=== PATIENT | female | born 1950 | race Caucasian/White ===

== ENCOUNTER 2017-07-07 11:06 | Observation (INO) | payer MEDICARE ==
[~2017-07-07] VITALS: Ht 157.5 cm; Wt 126.0 kg
[~2017-07-07 11:06] MED LIST: AMLO10 PO; ASPI81CH PO; ATROVENT INH; AZIT500 PO; BENZ100A PO; BUDE6HFA INH; CHOL10002 PO; DELTASONE20 MG PO; DIPH50 PO; DOXY100 PO; DULERA 200 MCG/13 GM INH; FLUC150A PO; FOLI1 PO; FURO40 PO; HYDACE10B PO; IPRAIS NEB; KETO15TC TOP; LEVSOD100 PO; LEVSOD150 PO; LISI20 PO; Laxative5 M1 PO; METF500 PO; MIRALAX17 GM PO; Morphine Sulfat15 MG PO; Nitrostat0.4 MG SL; OXYC10ER PO; OXYC1TAB11; PIOG45 PO; POTCHL20ER PO; PRED10 PO; ROSU5 PO; SERT100 PO; SPIRIVA RESPIMAT4 GM IH; TRAZ150T57 PO
[2017-07-07 11:26] LABS: BASOPHILS ABSOLUTE AUTO 0.04 K/mm3 (0.00-0.23); BASOPHILS PERCENT AUTO 0 % (0-2); EOSINOPHILS PERCENT AUTO 1 % (0-6); Hemoglobin 17.2 g/dL (11.5-16.0); IMMATURE GRAN ABSOLUTE AUTO 0.13 K/mm3 (0.00-0.10); IMMATURE GRAN PERCENT AUTO 1 % (0-1); LYMPHOCYTES ABSOLUTE AUTO 1.11 K/mm3 (0.84-5.20); LYMPHOCYTES PERCENT AUTO 6 % (21-46); MONOCYTES ABSOLUTE AUTO 1.04 K/mm3 (0.16-1.47); MONOCYTES PERCENT AUTO 5 % (4-13); Mean Corpuscular HGB Conc 30.2 g/dL (31.5-36.5); Mean Corpuscular Volume 93 fL (80-100); Mean Platelet Volume 9.6 fL (9.1-12.4); NEUTROPHILS ABSOLUTE AUTO 17.72 K/mm3 (1.96-9.15); NEUTROPHILS PERCENT AUTO 88 % (41-73); Platelet Count 330 K/mm3 (150-400); RDW Coefficient Variation 13.1 % (11.7-14.2); RDW Standard Deviation 44.1 fL (35.1-46.3); Red Blood Cell Count 6.15 M/mm3 (3.80-5.20); White Blood Cell Count 20.14 K/mm3 (4.00-11.30)
[2017-07-07 11:33] LABS: Hematocrit 56.9 % (33.0-51.0)
[2017-07-07 11:48] LABS: Alanine Aminotransfer (ALT/SGP 13 U/L (12-78); Albumin, Blood 3.3 g/dL (3.4-5.0); Albumin/Globulin Ratio 0.7 (0.8-1.8); Alk Phos 102 U/L (50-136); Anion Gap 4 mmol/L (6-16); Aspartate Aminotrans (AST/SGOT 13 U/L (12-37); Bilirubin, Total 0.4 mg/dL (0.1-1.0); Blood Urea Nitrogen 15 mg/dL (8-24); Bun/Creatinine Ratio 25.1 (12.0-20.0); CO2, Blood 40 mmol/L (21-32); CPK Creatine Kinase 68 U/L (26-193); Calcium, Blood 9.3 mg/dL (8.5-10.1); Chloride, Blood 91 mmol/L (98-108); Creatine Kinase MB 2.2 ng/mL (0.0-3.6); Creatine Kinase MB Index 3.2 (0.0-4.0); Globulin, Blood 4.7 g/dL (2.2-4.0); Glomerular Filtration Rate >60 (60-); Glucose, Blood 163 mg/dL (70-99); Potassium, Blood 4.4 mmol/L (3.5-5.5); Sodium, Blood 135 mmol/L (136-145); Troponin I <0.015 ng/mL (0.000-0.040)
[2017-07-07 12:49] LABS: Source, Urine Catheter
[2017-07-07 13:09] LABS: Appearance, Urine Hazy (Clear); Bilirubin, Urine Neg (Neg); Blood, Urine Neg (Neg); Color, Urine Yellow (P-Yellow); Glucose Qualitative, Urine Neg (Neg); Ketones, Urine Neg (Neg); Leukocyte Esterase, Urine Neg (Neg); Nitrite, Urine Neg (Neg); Protein, Urine 1+ (Neg); Specific Gravity, Urine 1.015 (1.003-1.022); Urobilinogen, Urine NORM (Normal)
[2017-07-07 13:33] LABS: Bacteria Not Seen /hpf; Mucus Light (0-Heavy); Red Blood Cells, Urine Not Seen /hpf (0-2); Squamous Epithelial Cells Many /hpf (Few); White Blood Cells, Urine 0-2 /hpf (0-5)
[2017-07-07 15:47] LABS: Base Excess Venous 18.8 mmol/L; Bicarbonate Venous 37.1 mmol/L (24.0-30.0); PCO2 Venous 82.1 mmHg (38-42); PO2 Venous 45.8 mmHg (38-42); pH Blood Venous 7.34 (7.34-7.37)
[2017-07-08 05:59] LABS: Anion Gap 7 mmol/L (6-16); Blood Urea Nitrogen 18 mg/dL (8-24); CO2, Blood 34 mmol/L (21-32); Calcium, Blood 8.4 mg/dL (8.5-10.1); Chloride, Blood 94 mmol/L (98-108); Creatinine, Blood 0.64 mg/dL (0.40-1.00); Glomerular Filtration Rate >60 (60-); Glucose, Blood 169 mg/dL (70-99); Potassium, Blood 3.9 mmol/L (3.5-5.5); Sodium, Blood 135 mmol/L (136-145)
[2017-07-08 11:25] LABS: Hematocrit 53.7 % (33.0-51.0); Hemoglobin 16.5 g/dL (11.5-16.0); Mean Corpuscular HGB 28.1 pg (26.0-34.0); Mean Corpuscular HGB Conc 30.7 g/dL (31.5-36.5); Mean Corpuscular Volume 92 fL (80-100); Mean Platelet Volume 9.8 fL (9.1-12.4); Platelet Count 284 K/mm3 (150-400); RDW Standard Deviation 43.4 fL (35.1-46.3); Red Blood Cell Count 5.87 M/mm3 (3.80-5.20); White Blood Cell Count 15.15 K/mm3 (4.00-11.30)
[2017-07-08 11:56] LABS: Base Excess Venous 13.3 mmol/L; Bicarbonate Venous 33.9 mmol/L (24.0-30.0); PCO2 Venous 61.6 mmHg (38-42); PO2 Venous 130 mmHg (38-42)
[2017-07-09] MEDS ORDERED: LEVSOD50 PO (12:13)
== END 2017-07-09 21:25 | disposition home health service (06) ==
LOC: ER 11:06 → MEDS 11:07
PROVIDERS: Emergency Medicine; Internal Medicine
DX: R55 Syncope and collapse (principal); J96.22 Acute and chronic respiratory failure with hypercapnia; J96.21 Acute and chronic respiratory failure with hypoxia; J44.9 Chronic obstructive pulmonary disease, unspecified; I10 Essential (primary) hypertension; E11.9 Type 2 diabetes mellitus without complications; E78.5 Hyperlipidemia, unspecified; G89.29 Other chronic pain; M54.9 Dorsalgia, unspecified; F32.9 Major depressive disorder, single episode, unspecified; G47.33 Obstructive sleep apnea (adult) (pediatric); I27.20 Pulmonary hypertension, unspecified; E66.01 Morbid (severe) obesity due to excess calories; E89.0 Postprocedural hypothyroidism; F17.210 Nicotine dependence, cigarettes, uncomplicated; Z82.49 Family history of ischemic heart disease and other diseases of the circulatory system; Z79.82 Long term (current) use of aspirin; Z79.899 Other long term (current) drug therapy; Z79.4 Long term (current) use of insulin; Z68.43 Body mass index [BMI] 50.0-59.9, adult
CPT/HCPCS: 36415; 71045; 80048; 80053; 81001; 82550; 82553; 82803; 82947; 83880; 84484; 85025; 85027; 93005; 93010; 93306; 94010; 94640; 94664; 94667; 94760; 96360; 96361; 96372; 97110; 97162; 97530; 98960; 99285; 99407; G0378; G8978; G8979; J1650; J7030

== ENCOUNTER 2019-12-13 08:35 | Emergency (ER) | payer MEDICARE ==
[~2019-12-13] VITALS: Ht 160 cm; Wt 129.3 kg
[~2019-12-13 08:35] MED LIST changes: +LEVSOD50 PO
[2019-12-13] MEDS ORDERED: LISI20 PO (08:51)
[2019-12-13] MEDS ORDERED: OXYCONTIN10 MG PO (08:51)
[2019-12-13] MEDS ORDERED: PIOG30 PO (08:51)
[2019-12-13] MEDS ORDERED: LEVO-T50 MCG PO (08:52)
[2019-12-13] MEDS ORDERED: VICTOZA 3-0.6 MG/0.2 SC (08:52)
[2019-12-13] MEDS ORDERED: POTCHL20ER PO (08:52)
[2019-12-13] MEDS ORDERED: SERT100 PO (08:52)
[2019-12-13] MEDS ORDERED: METF500 PO (08:52)
[2019-12-13] MEDS ORDERED: FURO40 PO (08:52)
[2019-12-13] MEDS ORDERED: FOLI1 PO (08:53)
[2019-12-13] MEDS ORDERED: FLUT1DIS2 INH (08:53)
[2019-12-13] MEDS ORDERED: ROSU5 PO (08:53)
[2019-12-13] MEDS ORDERED: TIOT18 INH (08:53)
[2019-12-13] MEDS ORDERED: AMLO10 PO (08:53)
[2019-12-13] MEDS ORDERED: TRAZ150T57 PO (08:53)
[2019-12-13] MEDS ORDERED: BENADRYL25 MG PO (08:54)
[2019-12-13] MEDS ORDERED: Vitamin D400 UNI1 PO (08:54)
[2019-12-13] MEDS ORDERED: ASPI81CH PO (08:54)
[2019-12-13] MEDS ORDERED: AERONEB GO NEB1 EACH (08:54)
[2019-12-13] MEDS ORDERED: Ketoconazole15 GM TOP (08:55)
[2019-12-13] MEDS ORDERED: TRIDERM28.4 GM TOP (08:55)
[2019-12-13] MEDS ORDERED: NYSTOP15 GM TOP (08:55)
[2019-12-13] MEDS ORDERED: Hydrocortiso453.6 G1 TOP (08:56)
== END 2019-12-13 11:45 | disposition home or self-care (01) ==
LOC: ER 08:35
DX: M25.552 Pain in left hip (principal); I10 Essential (primary) hypertension; E78.5 Hyperlipidemia, unspecified; E03.9 Hypothyroidism, unspecified; F32.9 Major depressive disorder, single episode, unspecified; J44.9 Chronic obstructive pulmonary disease, unspecified; F17.210 Nicotine dependence, cigarettes, uncomplicated; Z79.899 Other long term (current) drug therapy; Z79.84 Long term (current) use of oral hypoglycemic drugs; Z79.82 Long term (current) use of aspirin
CPT/HCPCS: 73502; 99283-25

== ENCOUNTER 2020-01-19 18:06 | Inpatient (IN) | payer MEDICARE ==
[~2020-01-19] VITALS: Ht 157.5 cm; Wt 130.7 kg
[~2020-01-19 18:06] MED LIST changes: +AERONEB GO NEB1 EACH; +Aspirin EC81 MG PO; +BENADRYL25 MG PO; +FLUT1DIS2 INH; +Hydrocortiso453.6 G1 TOP; +Ketoconazole15 GM TOP; +LEVO-T50 MCG PO; +NYSTOP15 GM TOP; +OXYCONTIN10 MG PO; +PIOG30 PO; +TIOT18 INH; +TRIDERM28.4 GM TOP; +VICTOZA 3-0.6 MG/0.2 SC; +Vitamin D2000 UNIT PO
[2020-01-19 18:31] LABS: pH Blood Arterial 7.25 (7.35-7.45)
[2020-01-19 18:32] LABS: PCO2 Arterial > 105 mmHg (35-45); PO2 Arterial 48.3 mmHg (80-100)
[2020-01-19 18:34] LABS: BASOPHILS ABSOLUTE AUTO 0.08 K/mm3 (0.00-0.23); BASOPHILS PERCENT AUTO 1 % (0-2); EOSINOPHILS PERCENT AUTO 1 % (0-6); Hematocrit 53.4 % (33.0-51.0); Hemoglobin 15.1 g/dL (11.5-16.0); IMMATURE GRAN ABSOLUTE AUTO 0.24 K/mm3 (0.00-0.10); IMMATURE GRAN PERCENT AUTO 2 % (0-1); LYMPHOCYTES ABSOLUTE AUTO 0.89 K/mm3 (0.84-5.20); LYMPHOCYTES PERCENT AUTO 6 % (21-46); MONOCYTES ABSOLUTE AUTO 0.63 K/mm3 (0.16-1.47); MONOCYTES PERCENT AUTO 4 % (4-13); Mean Corpuscular HGB 28.3 pg (26.0-34.0); Mean Corpuscular HGB Conc 28.3 g/dL (31.5-36.5); Mean Corpuscular Volume 100 fL (80-100); Mean Platelet Volume 10.5 fL (9.1-12.4); NEUTROPHILS ABSOLUTE AUTO 13.81 K/mm3 (1.96-9.15); NEUTROPHILS PERCENT AUTO 88 % (41-73); Platelet Count 255 K/mm3 (150-400); RDW Coefficient Variation 13.1 % (11.7-14.2); RDW Standard Deviation 48.6 fL (35.1-46.3); Red Blood Cell Count 5.34 M/mm3 (3.80-5.20); White Blood Cell Count 15.75 K/mm3 (4.00-11.30)
[2020-01-19 19:17] LABS: Alanine Aminotransfer (ALT/SGP 20 U/L (12-78); Albumin/Globulin Ratio 0.7 (0.8-1.8); Alk Phos 108 U/L (50-136); Aspartate Aminotrans (AST/SGOT 9 U/L (12-37); Bilirubin, Total 0.5 mg/dL (0.1-1.0); Blood Urea Nitrogen 24 mg/dL (8-24); Bun/Creatinine Ratio 38.8 (12.0-20.0); CPK Creatine Kinase 41 U/L (26-193); Calcium, Blood 9.6 mg/dL (8.5-10.1); Chloride, Blood 92 mmol/L (98-108); Creatinine, Blood 0.62 mg/dL (0.40-1.00); Globulin, Blood 4.1 g/dL (2.2-4.0); Glomerular Filtration Rate >60 (60-); Glucose, Blood 341 mg/dL (70-99); Potassium, Blood 5.2 mmol/L (3.5-5.5); Sodium, Blood 139 mmol/L (136-145); Total Protein, Blood 7.1 g/dL (6.4-8.2); Troponin I <0.015 ng/mL (0.000-0.040)
[2020-01-19 19:19] LABS: Anion Gap Unable to Calculate mmol/L (6-16); CO2, Blood >45 mmol/L (21-32)
[2020-01-19 20:18] LABS: Adenovirus Not Detected (NOT DETECT); Bordetella pertussis Not Detected (NOT DETECT); Chlamydophila pneumoniae Not Detected (NOT DETECT); Coronavirus 229E Not Detected (NOT DETECT); Coronavirus HKU1 Not Detected (NOT DETECT); Coronavirus NL63 Not Detected (NOT DETECT); Coronavirus OC43 Not Detected (NOT DETECT); Human Metapneumovirus Not Detected (NOT DETECT); Human Rhinovirus/Enterovirus Not Detected (NOT DETECT); Influenza A/2009-H1 Not Detected (NOT DETECT); Influenza A/H1 Not Detected (NOT DETECT); Influenza A/H3 Not Detected (NOT DETECT); Influenza B Not Detected (NOT DETECT); Mycoplasma pneumoniae Not Detected (NOT DETECT); Parainfluenza Virus 1 Not Detected (NOT DETECT); Parainfluenza Virus 2 Not Detected (NOT DETECT); Parainfluenza Virus 3 Not Detected (NOT DETECT); Parainfluenza Virus 4 Not Detected (NOT DETECT); Respiratory Syncytial Virus Not Detected (NOT DETECT); SARS-Cov-2 (COVID-19), BioFire Not Detected (NOT DETECT)
[2020-01-19] MEDS ORDERED: SYNTHROID75 MCG PO (20:22)
[2020-01-19] MEDS ORDERED: OXYC10TA19 PO (20:22)
[2020-01-19] MEDS ORDERED: VICTOZA 2-0.6 MG/0.1 SC (20:22)
[2020-01-20 02:29] LABS: U Amphetamine Screen Not Detected; U Barbituate Screen Not Detected; U Benzodiazapine Screen Not Detected; U Buprenorphine Screen Not Detected; U Cannabinoids Screen Not Detected; U Cocaine Screen Not Detected; U Methadone Screen Not Detected; U Methamphetamine Screen Not Detected; U Opiates Screen Not Detected; U Oxycodone Screen Not Detected; U Phencyclidine Screen Not Detected; U Propoxyphene Screen Not Detected
[2020-01-20 03:18] LABS: PO2 Arterial 54.1 mmHg (80-100); pH Blood Arterial 7.41 (7.35-7.45)
[2020-01-20 03:19] LABS: PCO2 Arterial 75.3 mmHg (35-45)
--- NOTE | 2020-01-20 03:30 | NUR ---
CRITICAL LAB RESPIRATORY REPORTS A CRITICAL LAB: ARTERIAL C02, 75.3. THIS IS DECREASED FROM PREVIOUS ARTERIAL C02 LAB. SPOKE TO CHARGE NURSE, ANGELES, WHO AGREED THIS IS TRENDING IN THE RIGHT DIRECTION. WILL CONTINUE TO MONITOR.
[2020-01-20 06:37] LABS: BASOPHILS ABSOLUTE AUTO 0.04 K/mm3 (0.00-0.23); BASOPHILS PERCENT AUTO 0 % (0-2); EOSINOPHILS PERCENT AUTO 0 % (0-6); Hematocrit 49.6 % (33.0-51.0); Hemoglobin 14.5 g/dL (11.5-16.0); IMMATURE GRAN ABSOLUTE AUTO 0.12 K/mm3 (0.00-0.10); IMMATURE GRAN PERCENT AUTO 1 % (0-1); LYMPHOCYTES ABSOLUTE AUTO 1.02 K/mm3 (0.84-5.20); LYMPHOCYTES PERCENT AUTO 6 % (21-46); MONOCYTES ABSOLUTE AUTO 0.68 K/mm3 (0.16-1.47); MONOCYTES PERCENT AUTO 4 % (4-13); Mean Corpuscular HGB 28.4 pg (26.0-34.0); Mean Corpuscular HGB Conc 29.2 g/dL (31.5-36.5); Mean Corpuscular Volume 97 fL (80-100); Mean Platelet Volume 10.3 fL (9.1-12.4); NEUTROPHILS PERCENT AUTO 89 % (41-73); Platelet Count 248 K/mm3 (150-400); RDW Standard Deviation 46.1 fL (35.1-46.3); White Blood Cell Count 16.46 K/mm3 (4.00-11.30)
--- NOTE | 2020-01-20 06:40 | NUR ---
ADMIT NOTE / SHIFT SUMMARY PT CAME TO PCU FROM ED AT APPROX 0115. PT WAS SLID FROM ED STRETCHER TO PCU BED BY 5 STAFF MEMBERS. PT ALERT. ORIENTED TO SELF. PT COOPERATIVE, CONFUSED. WHEN ASKING PT QUESTIONS ABOUT MEDICAL HISTORY, SHE REPLIED "KITTENS". RESPIRATORY IN ROOM TO ASSIST PT WITH BIPAP. BIPAP SETTINGS: 18/8, FIO2 45%, RR 30'S. PT WEARING BIPAP T/O SHIFT SINCE ADMISSION. PT DID HAVE A CRITICAL LAB: ARTERIAL C02, 75.3. THIS IS DECREASED FROM PREVIOUS ARTERIAL C02 LAB. TELEMETRY READS SR, HR 80'S. DAVIS CATHETER DRAINING YELLOW/ORANGE URINE. UPON ADMISSION, PT HAD DRIED FECES ON HER FEET/BETWEEN TOES. PT HAS LARGE AREAS OF REDNESS UNDER BILAT BREASTS, ABD FOLD, & GROIN SPREADING DOWN INTO THIGHS, SEE PICTURES IN CHART. PT WAS GIVEN COMPLETE BED BATH BY RN AND PCT. NYSTATIN PLACED ON RED AREAS. PT IN BED SLEEPING. WILL CONTINUE TO MONITOR UNTIL END OF SHIFT. .
[2020-01-20 07:04] LABS: Albumin, Blood 2.9 g/dL (3.4-5.0); Blood Urea Nitrogen 22 mg/dL (8-24); Bun/Creatinine Ratio 36.4 (12.0-20.0); Calcium, Blood 9.3 mg/dL (8.5-10.1); Chloride, Blood 92 mmol/L (98-108); Glomerular Filtration Rate >60 (60-); Glucose, Blood 247 mg/dL (70-99); Phosphorus, Blood 1.4 mg/dL (2.5-4.9); Potassium, Blood 4.7 mmol/L (3.5-5.5); Sodium, Blood 139 mmol/L (136-145)
[2020-01-20 07:20] LABS: Anion Gap Unable to Calculate mmol/L (6-16)
[2020-01-20 07:24] LABS: CO2, Blood >45 mmol/L (21-32)
--- NOTE | 2020-01-20 07:41 | NUR ---
0715 The pt was attempting to have a break from the Bipap, but was intolerant of it. Obvious dyspnea, grunting, RR greater than 40, and spo2 85% on the NC hi caio at 10 l/min. She was put back on the bipap, and is now at 0745 talking to me through her bipap, spo2 91%, and RR 35-40, with no noted dyspnea. States that her breathing is "ok" and would like some water. States that she fell at home and now is at the hospital. She is slightly confused,states that she stayed at someone's home last night. States clearly that she is in the hospital now.
--- NOTE | 2020-01-20 08:27 | NUR ---
Pt was given ice water, medications for pain taken with milk while a very brief break for bipap was taken. She is occasionally yelling out, and asking for food, what happened last night, saying that she doesn't want to be here in the hospital, that she wants to go home, and at times demanding that staff members change their assignment because she doesn't like them. Currently on bipap, 45% fio2 with settings 18/8, and RR 33 spo2 93. HR 67. When not yelling out, she appears to have less work of breathing while on the bipap; however, she does have moaning and grunting and swearing on occasion.
--- NOTE | 2020-01-20 12:51 | NUR ---
Yung continues to sleep most of the day, awakening easily, and wearing the bipap. Short breaks for drinks of ice water/taking medications. She has no more c/o pain at this time. Repositioned and attempted to contact her son Yoseph at her request. She also requested that I call her ex Tramaine, however, I have no number for him, and neither does she. She is irritable, often telling staff that she does not like them, and overall frequent expressions consistent with frustration and anger. I asked her whom she lives with and she said that she did not want to tell me because it wasn't any of our business. All attempts were made for her comfort, respiratory support, and personal hygiene.
--- NOTE | 2020-01-20 13:02 | NUR ---
Pt pulled out her IV on her left shoulder, said that it was bothering her. Bleeding stopped with 2x2 gauze and covered site with bandaid. Pt pulled securing coban off of her right wrist IV site, said that it was in the way. IV verified intact, and dressing was reinforced to prevent future dislodgement with tape and coban. At this time, the pt is lying on her left side, wearing bipap, and has no
--- NOTE | 2020-01-20 13:09 | NUR ---
Assisted up to BSC at pt's request. She is wobbly on her feet, but strong enough to stand and turn toward the BSC for BM. She is somewhat confused and had a little difficulty following verbal cues. Wearing bipap the entire time as she appears to have some dyspnea, even with the bipap on during the activity with 2 staff members assisting.
--- NOTE | 2020-01-20 14:22 | NUR ---
Pt appears to be sleeping comfortably on her right side, wearing the bipap. Her grandson Yoseph called on the phone and asked if he could come and visit. I told him she has not had any visitors today, and that he could come.
--- NOTE | 2020-01-20 15:41 | NUR ---
SPO2 greater than 95% on the bipap. Pt was taken off of bipap, and oxymizer put on and o2 delivery gradually weaned down as spo2 was still high. Now on 5 l/min oxymizer and spo2 is 93% at this time.
--- NOTE | 2020-01-20 15:53 | NUR ---
Call to Dr. Wolff to notify that pt is tolerating being off of the bipap on oxymizer. New order for diet and ACHS blood sugars.
--- NOTE | 2020-01-20 17:00 | NUR ---
Tolerating breaks from the bipap. Medicated for pain with Tylenol at this time. Pt is yelling, "where is my dinner? I want to eat!" Assured her that dinner tray should be arriving between 5 and 5;30 PM. She said, "No breakfast, No dinner, this is NOT A NICE PLACE!" Explained to the pt that earlier today she wasn't able to breathe well enough to come off of the bipap, despite efforts on nursing and respiratory care staff to wean her off of the bipap or give her short breaks from the bipap. Explained she could not eat if she wasn't able to breathe without the bipap mask.
--- NOTE | 2020-01-20 17:48 | NUR ---
Pt has been frequently offered oral fluids today on very brief breaks from bipap, and was able to tolerate the oxymizer at 8 l/min for dinner, spo2 did drop to 84-86% at the peak of activity. At this time, she is done eating and was put back on the bipap as she agreed that her work of breathing was hard and I also saw that her spo2 was 87% on 8 l on the oxymizer after she had finished eating. Quezada catheter now draining clear veterinary practice manager yellow urine; this morning it was jojo, clear.
--- NOTE | 2020-01-21 06:10 | NUR ---
END OF SHIFT SUMMARY PT AXO. HAS BEEN COOPERATIVE T/O SHIFT W/OUT ANY OUTBURSTS EMOTIONALLY. HAS BEEN SR, VSS. REMAINS ON BIPAP, /, FIO2 35%, TITRATED FROM 45%. WHEN OF, PT ON OXYMIZER 5-8L ABD TOLERATED FOR 10 MINUTE BREAKS. PT QUINN STOOD AT BEDSIDE A FEW TIMES THIS SHIFT FOR REPOSITIONING. SUSAN SCOTTANS PATENT AND DRAINING. MINIMAL OUTPUT. HAS DENIED CP T/O SHIFT. STATES FEELING "MUCH BETTER" THIS SHIFT VS DAY SHIFT. OTHERWISE, PT RESTING OFF AND ON T/O SHIFT. USING CALL LIGHT APPROPRIATELY. WILL CONTINUE TO MONITOR UNTIUL SHIFT CHANGE.
--- NOTE | 2020-01-21 07:30 | NUR ---
ASSUMED CARE: PT RECEIVING BREATHING TX, OXYMIZER IN PLACE AT 8L. RT AT BEDSIDE. NO ACUTE NEEDS AT THIS TIME.
--- NOTE | 2020-01-21 18:53 | NUR ---
SHIFT SUMMARY: PT RESTING IN BED ON 6L OXYMIZER AT THIS TIME. PT STATES HOME BASELINE IS 4-6L. GRANDSON CAME IN TO SEE HER AND WAS GIVEN UPDATE. PLAN IS FOR CONTINUED TITRATION OF O2 BACK TO BASELINE. PHYSICAL THERAPY EVALUATED AND RECOMMENDS HOME HEALTH. PT HOPES TO GO BACK HOME IN NEXT COUPLE DAY. SUSAN DOUGHERTY'D TODAY WITH VOID AFTERWARD. NO FURTHER NEEDS OR CONCERNS.
[2020-01-22 04:54] LABS: BASOPHILS ABSOLUTE AUTO 0.03 K/mm3 (0.00-0.23); BASOPHILS PERCENT AUTO 0 % (0-2); EOSINOPHILS ABSOLUTE AUTO 0.35 K/mm3 (0.00-0.68); EOSINOPHILS PERCENT AUTO 4 % (0-6); Hematocrit 45.8 % (33.0-51.0); Hemoglobin 13.3 g/dL (11.5-16.0); IMMATURE GRAN ABSOLUTE AUTO 0.05 K/mm3 (0.00-0.10); IMMATURE GRAN PERCENT AUTO 1 % (0-1); LYMPHOCYTES ABSOLUTE AUTO 1.93 K/mm3 (0.84-5.20); LYMPHOCYTES PERCENT AUTO 20 % (21-46); MONOCYTES ABSOLUTE AUTO 0.68 K/mm3 (0.16-1.47); MONOCYTES PERCENT AUTO 7 % (4-13); Mean Corpuscular HGB 27.4 pg (26.0-34.0); Mean Corpuscular Volume 94 fL (80-100); Mean Platelet Volume 10.2 fL (9.1-12.4); NEUTROPHILS ABSOLUTE AUTO 6.72 K/mm3 (1.96-9.15); NEUTROPHILS PERCENT AUTO 69 % (41-73); Platelet Count 218 K/mm3 (150-400); RDW Coefficient Variation 13.6 % (11.7-14.2); RDW Standard Deviation 47.3 fL (35.1-46.3); Red Blood Cell Count 4.85 M/mm3 (3.80-5.20); White Blood Cell Count 9.76 K/mm3 (4.00-11.30)
[2020-01-22 05:12] LABS: Anion Gap 2 mmol/L (6-16); Blood Urea Nitrogen 22 mg/dL (8-24); CO2, Blood 40 mmol/L (21-32); Calcium, Blood 8.6 mg/dL (8.5-10.1); Chloride, Blood 97 mmol/L (98-108); Creatinine, Blood 0.61 mg/dL (0.40-1.00); Glomerular Filtration Rate >60 (60-); Glucose, Blood 242 mg/dL (70-99); Potassium, Blood 4.1 mmol/L (3.5-5.5); Sodium, Blood 139 mmol/L (136-145)
--- NOTE | 2020-01-22 05:49 | NUR ---
PROVIDER CALLED DR TEJADA REGARDING PT'S PAIN. UPDATED THAT PT TAKES OXYCODONE 10MG Q6 AT HOME AND THAT THE LAST PHARMACY REFILL WAS WITHIN A WEEK OF ADMISSION. UPDATED THAT TYLENOL HAS BEEN GIVEN MUCH EMAR HAS ALLOWED AND HAS HAD NO EFFECT ON PT'S CHRONIC PAIN. DR TEJADA STATES TO GIVE ANOTHER DOSE OF 650MG ACETIMINOPHEN.
--- NOTE | 2020-01-22 05:52 | NUR ---
SHIFT SUMMARY PT WAS ON NASAL OXYMIZER T/O SHIFT AT 8LPM WITH O2 SATS IN THE 90'S, PT SHOWED MILD DYSPNEA UPON EXERTION AND WAS TACHYPNEIC WITH 02 SATS STABLE. PT RESPRITORY EFFORT AND OXYGENATION HAVE IMPROVED SINCE LAST PM SHIFT. HR AND BP STABLE. PT STATED HAVING PAIN IN HER BACK AND ITCHING T/O BODY. PT WAS ABLE TO STAND AND USE BEDSIDE COMMODE WITH MINIMAL DROP IN O2. PT WAS UNABLE TO SLEEP STATING SHE TAKES PILLS AT HOME TO HELP HER SLEEP. WILL CONTINUE TO MONITOR UNTIL SHIFT CHANGE.
--- NOTE | 2020-01-22 07:50 | NUR ---
ASSUMED CARE: DR THORNTON CAME IN TO SEE PT THIS AM. PLAN FOR TX TO MEDICAL FLOOR. PT CURRENTLY ON 8L O2 VIA OXYMIZER. DISCUSSED PT'S REQUEST FOR PAIN MEDICATION AND ITCHING WITH DR THORNTON. SEE NEW ORDERS.
--- NOTE | 2020-01-22 10:39 | NUR ---
PT TAKEN FOR 2 VIEW XRAY VIEW WHEEL CHAIR AT THIS TIME BY TRANSPORT STAFF
--- NOTE | 2020-01-22 15:46 | NUR ---
REPORT CALLED TO KRISTIAN MCBRIDE. PT TRANSFERRED TO ROOM 326 VIA BED ON 8L OXYMIZER. NO FURTHER NEEDS OR CONCERNS AT THIS TIME.
--- NOTE | 2020-01-22 17:03 | NUR ---
SHIFT SUMMARY 1559 PCU TRANSFER TO MEDICAL FLOOR VIA BED. PT ON 8L O2 OXIMYZER, PT DENIES SOB, BREATHING EQUAL AND NON LABORED. PT REPORTED CHRONIC PAIN, PRN ROXICODONE GIVEN, AWAITING REASSMENT. NO N/V.
[2020-01-23 06:39] LABS: Anion Gap 3 mmol/L (6-16); Blood Urea Nitrogen 20 mg/dL (8-24); Bun/Creatinine Ratio 35.6 (12.0-20.0); CO2, Blood 36 mmol/L (21-32); Calcium, Blood 8.7 mg/dL (8.5-10.1); Chloride, Blood 98 mmol/L (98-108); Creatinine, Blood 0.56 mg/dL (0.40-1.00); Glomerular Filtration Rate >60 (60-); Glucose, Blood 185 mg/dL (70-99); Potassium, Blood 4.4 mmol/L (3.5-5.5); Sodium, Blood 137 mmol/L (136-145)
--- NOTE | 2020-01-23 07:36 | NUR ---
01/23/20 0645 MEDICATED FOR CHRONIC BACK PAIN PER JUN. SBA NEEDED WHEN GETTING TO BSC FOR VOIDINGS. O2 TITRATED PER RESP. CARE. SEE RT NOTES. HEART MONITOR STABLE ALONG WITH VITALS.
--- NOTE | 2020-01-23 12:49 | NUR ---
IV AND TELE DISCONTINUED IN PREP FOR PATIENT DISCHARGE HOME TODAY.
[2020-01-23] MEDS ORDERED: VISBIOME PROBIOTIC PO (13:09)
--- NOTE | 2020-01-23 14:09 | NUR ---
DISCHARGE INSTRUCTIONS GIVEN TO PATIENTS GRANDSON. ALL QUESTIONS ANSWERED. IV AND TELE REMOVED. pATIENT TO DISCHARGE HOME WITH HESHAM WHO WILL BE HELPING TO CARE FOR PATIENT.
--- NOTE | 2020-01-23 14:25 | NUR ---
PATIENT DISCHARGED HOME WITH GRANDSON @ 1425. ESCORTED OUT OF THE HOSPITAL BY STAFF IN WHEELCHAIR.
== END 2020-01-23 14:27 | disposition home health service (06) | DRG 871 ==
LOC: ER 18:06 → PCU 22:50 → MEDS 01-22 15:40 → ENPENDDIS 01-23 12:19 → MEDS 01-23 14:27
PROVIDERS: Emergency Medicine; Hospitalist; ADMIT Family Medicine
PROC: 5A09357 Assistance with Respiratory Ventilation, Less than 24 Consecutive Hours, Continuous Positive Airway Pressure (ICD-10-PCS; principal; 2020-01-19)
DX: A41.9 Sepsis, unspecified organism (principal); G92 Toxic encephalopathy; J96.21 Acute and chronic respiratory failure with hypoxia; J96.22 Acute and chronic respiratory failure with hypercapnia; J18.9 Pneumonia, unspecified organism; J44.1 Chronic obstructive pulmonary disease with (acute) exacerbation; J44.0 Chronic obstructive pulmonary disease with (acute) lower respiratory infection; Z68.43 Body mass index [BMI] 50.0-59.9, adult; Z20.828 Contact with and (suspected) exposure to other viral communicable diseases; B37.2 Candidiasis of skin and nail; R65.20 Severe sepsis without septic shock; I10 Essential (primary) hypertension; E03.9 Hypothyroidism, unspecified; E11.65 Type 2 diabetes mellitus with hyperglycemia; M79.3 Panniculitis, unspecified; E66.01 Morbid (severe) obesity due to excess calories; F17.210 Nicotine dependence, cigarettes, uncomplicated; Z79.84 Long term (current) use of oral hypoglycemic drugs; Z79.82 Long term (current) use of aspirin; Z99.81 Dependence on supplemental oxygen
CPT/HCPCS: 0202U; 36415; 36600; 51702; 70450; 71045; 71046; 72125; 80048; 80053; 80069; 82550; 82803; 82947; 83036; 83605; 83880; 84443; 84484; 85025; 87040; 93005; 93010; 94640; 94660; 94760; 94762; 96365; 96366; 97110; 97116; 97162; 99285-25; A9270; J0456; J0696; J1650; J1815; J7050